=== PATIENT | male | born 1980 ===

== ENCOUNTER 2020-03-19 08:16 | Day surgery (SDC) | payer OTHER ==
[2020-03-19] MEDS ORDERED: AMOX1TAB5 PO (11:20)
== END 2020-03-19 13:00 | disposition home or self-care (01) ==
LOC: AMB-ENDOS 08:16
PROVIDERS: ATTEND Surgery
DX: D12.0 Benign neoplasm of cecum (principal); Z20.822 Contact with and (suspected) exposure to COVID-19; Z12.11 Encounter for screening for malignant neoplasm of colon

== ENCOUNTER 2020-10-14 05:45 | Day surgery (SDC) | payer OTHER ==
[~2020-10-14 05:45] MED LIST: AMOX1TAB5 PO; LEVO-T125 MCG PO
[2020-10-14] MEDS ORDERED: PERCOCET 5-3251 EACH PO (11:09)
[2020-10-14] MEDS ORDERED: NEURONTIN300 MG PO (11:10)
[2020-10-14] MEDS ORDERED: KETO10TA2 PO (11:10)
[2020-10-14] MEDS ORDERED: DERMOPLAST PAIN78 GM TOP (11:11)
== END 2020-10-14 15:25 | disposition home or self-care (01) ==
LOC: CIR.AMB 05:45
PROVIDERS: ATTEND Surgery
DX: K60.3 Anal fistula (principal); Z20.822 Contact with and (suspected) exposure to COVID-19

== ENCOUNTER 2021-02-14 13:57 | Inpatient (IN) | payer OTHER ==
[~2021-02-14] VITALS: Ht 167.6 cm; Wt 80.3 kg
[~2021-02-14 13:57] MED LIST changes: +DERMOPLAST PAIN78 GM TOP; +KETO10TA2 PO; +NEURONTIN300 MG PO; +PERCOCET 5-3251 EACH PO
[2021-02-14] MEDS ORDERED: LEVOTHYROXINE125 MCG PO (14:32)
[2021-02-18] MEDS ORDERED: INTESTINEX680 M1 PO (10:56)
[2021-02-18] MEDS ORDERED: CIPRO500 MG PO (10:56)
[2021-02-18] MEDS ORDERED: METRONIDAZOLE500 MG PO (10:56)
== END 2021-02-18 13:39 | disposition home or self-care (01) | DRG 394 ==
LOC: ER 13:57 → SURH 19:34
PROVIDERS: ADMIT Surgery; ATTEND Surgery
DX: K61.0 Anal abscess (principal); L03.315 Cellulitis of perineum; K64.8 Other hemorrhoids; E03.8 Other specified hypothyroidism; Z20.822 Contact with and (suspected) exposure to COVID-19

== ENCOUNTER 2021-03-17 05:55 | Day surgery (SDC) | payer OTHER ==
[~2021-03-17 05:55] MED LIST changes: +CIPRO500 MG PO; +INTESTINEX680 M1 PO; +LEVOTHYROXINE125 MCG PO; +METRONIDAZOLE500 MG PO
[2021-03-17] MEDS ORDERED: PERCOCET 5-3251 EACH PO (10:15)
[2021-03-17] MEDS ORDERED: DERMOPLAST PAIN78 GM TOP ×2 (10:15→10:16)
[2021-03-17] MEDS ORDERED: NEURONTIN300 MG PO (10:15)
== END 2021-03-17 13:45 | disposition home or self-care (01) ==
LOC: CIR.AMB 05:55
PROVIDERS: ATTEND Surgery
DX: K60.3 Anal fistula (principal)